=== PATIENT | female | born 1950 | race Caucasian/White ===

== ENCOUNTER → 2016-11-04 | Outpatient (CLI) | payer BC ==
--- NOTE | 2016-11-04 22:11 | RADRPT ---
PROCEDURE: CT Chest Without Contrast CLINICAL INDICATION: Cough TECHNIQUE: Volumetric acquisition of the thorax was performed without the intravenous administrati on of contrast. Radiation Dose: CTDI = 14.12 mGy; DLP = 536.24 mGy-cm. COMPARISON: 02/19/2016. FINDINGS: Lung villafana: Slight reticular changes again seen at the pulmonary apices. Discoid atelectatic de la rosa es again seen within the right middle lobe medially, but has resolved from the medial right lung bas e. A noncalcified pleural based nodule is again seen within the right lower lobe adjacent to the po sterior pleura measuring 7 mm in diameter best seen on image number 67 of series #4. A slightly mor e superiorly and medially up pleural-based 4 mm noncalcified nodule is seen within the left lower lo be, also unchanged. The vague focal infiltrate has developed within the anterior basal segment of t he right lower lobe posterior to the dome of the diaphragm and also more posteriorly and laterally w ithin the right lower lobe. The pleural spaces: No effusion or pneumothorax is identified. Lymph nodes: There is an 9 mm in short diameter neural subcarinal node, minimally increased in size. And 8 mm in short diameter precarinal node is evident which is also as minimally increased in size . A 6 mm in short diameter pretracheal node is again evident and a 6 mm right paratracheal node is again noted. Cardiovascular structures: And the heart is not enlarged. The aorta is normal in caliber with ather osclerotic vascular calcification noted. Thyroid: Unremarkable. Superior abdominal structures: No significant abnormality is evident. Osseous structures: Mild diffuse anterior spondylosis is seen to the spine. IMPRESSION: 1. Interval development of small focal infiltrates within the right lower lobe and within the anter ior basal segment posterior to the dome of the diaphragm and 1 more posteriorly and laterally. 2. Persistent subsegmental atelectasis involving the medial right middle lobe containing air bronch ograms. 3. 2 pleural based noncalcified nodules are again seen within the posterior right lower lobe 1 loly uring 7 mm in diameter and the other 4 mm in diameter. 4. Minimal reticular changes are again seen at the pulmonary apices compatible with scarring. 5. No pleural fluid accumulation pneumothorax evident. 6. Slight increase in size to a 9 mm in short diameter subcarinal node and 8 mm in short diameter p recarinal node with no interval change to the 6 mm in short diameter pretracheal node and a 6 mm in short diameter right paratracheal node. 7. The cardiovascular structures appear unremarkable except for mild atherosclerotic change involvi ng the aorta. 8. Mild diffuse degenerative anterior spondylosis is seen to the visualized spine. Physician Zachary Date Time Electronically viewed and signed by Edy Bennett Physician on 11/04/2016 22:11 /
== END | disposition home or self-care (01) ==
LOC: C/S 08:41
PROVIDERS: ATTEND Internal Medicine
DX: R05 Cough (principal); J98.11 Atelectasis
CPT/HCPCS: 71250

== ENCOUNTER → 2016-11-12 | Outpatient (CLI) | payer BC ==
[2016-11-12 14:24] LABS: BASOPHIL # 0.1 10^3/ul (0.0-0.1); BASOPHILS % 0.5 % (0.0-2.0); EOSINOPHILS # 0.4 10^3/ul (0.0-0.5); EOSINOPHILS % 3.1 % (0.0-7.0); HEMOGLOBIN 11.7 g/dl (12.0-16.0); LYMPHOCYTES % 23.5 % (15.0-51.0); MEAN CORPUSCULAR HEMOGLOBIN 29.7 pg (29.0-33.0); MEAN CORPUSCULAR HGB CONC 34.4 g/dl (32.0-37.0); MEAN CORPUSCULAR VOLUME 86.3 fl (82.0-101.0); MEAN PLATELET VOLUME 7.9 fl (7.4-10.4); MONOCYTE # 0.7 10^3/ul (0.3-0.9); MONOCYTES % 5.7 % (0.0-11.0); NEUTROPHIL # 8.5 10^3/ul (1.6-7.5); NEUTROPHILS % 67.2 % (39.0-77.0); PLATELET COUNT 531 10^3/UL (140-440); RED BLOOD COUNT 3.94 10^6/ul (4.20-5.40); RED CELL DISTRIBUTION WIDTH 13.1 % (11.5-14.5); UNCORRECTED WBC 12.7 10^3/ul (4.8-10.8); WHITE BLOOD COUNT 12.7 10^3/ul (4.8-10.8)
[2016-11-12 14:29] LABS: CONDITION 1
[2016-11-15 19:22] LABS: TB-NIL <0.00 IU/mL
== END | disposition home or self-care (01) ==
LOC: LAB 13:35
PROVIDERS: ATTEND Internal Medicine Pulmonary Disease
DX: J40 Bronchitis, not specified as acute or chronic (principal)
CPT/HCPCS: 82785; 85025; 86480; 86606; 86635

== ENCOUNTER → 2018-05-19 | Outpatient (CLI) | END | disposition home or self-care (01) ==

== ENCOUNTER → 2018-07-19 | Outpatient (CLI) | END | disposition home or self-care (01) ==

== ENCOUNTER → 2018-07-25 | Outpatient (CLI) | END | disposition home or self-care (01) ==

== ENCOUNTER → 2018-07-26 | Outpatient (CLI) | END | disposition home or self-care (01) ==

== ENCOUNTER 2019-05-28 05:44 | Emergency (ER) | payer BC ==
[~2019-05-28] VITALS: Ht 175.3 cm; Wt 90.0 kg
[2019-05-28 05:49] VITALS: BP 126/66; PULSE 82; RESP 19; Ht 175.3 cm; Wt 90.0 kg
[2019-05-28] MEDS ORDERED: AMOX1TAB10 PO (05:51)
--- NOTE | 2019-05-28 05:56 | ERD ---
ER Documentation Chief Complaint Chief Complaint bib self, cc: right hand scratch from cat / bite HPI 68-year-old female no past medical history presents to the emergency with cat bite and scratch to the right hand worse to the middle finger. Patient notes only mild discomfort, worse with ranging the joint. Tetanus is reported to be up-to-date. This is her cat but it is a rescue. ROS All systems reviewed and are negative except as per history of present illness. Medications Home Meds Active Scripts Amoxicillin/Potassium Clav (Amox-Clav 875-125 mg Tablet) 875-125 mg Tab, 1 TAB PO BID for 7 Days, #14 TAB Prov:CASSIUS REYNAGA MD 05/28/19 Allergies Allergies: Coded Allergies: No Known Allergy (Unverified , 05/28/19) PMhx/Soc Medical and Surgical Hx: pt denies Medical Hx, pt denies Surgical Hx Hx Alcohol Use: No Hx Substance Use: No Hx Tobacco Use: No Smoking Status: Never smoker FmHx Family History: No diabetes Physical Exam Vitals Vital Signs Date Temp Pulse Resp B/P (MAP) Pulse Ox O2 O2 Flow FiO2 Time Delivery Rate 05/28/19 98.7 82 19 126/66 100 05:49 (86) Physical Exam General: Well developed, well nourished, no acute distress Head: Normocephalic, atraumatic. Eyes: EOM intact ENT: Moist mucous membranes Neck: Full ROM Respiratory: No respiratory distress Cardiovascular: Well perfused distally Abdominal: Nondistended : Deferred MSK: The patient has scratch and abrasions noted to the palmar surface and dorsal surface of the right hand with soft tissue swelling and mild contusion noted to the middle finger. Full active and passive range of motion, no bony abnormalities, good capillary refill. Neurologic: Alert and oriented, moving all extremities, normal speech, steady gait Skin: No rash Psych: Normal mood Results 24 hrs Current Medications Medications Dose Sig/Twan Start Time Status Last (Trade) Ordered Route PRN Stop Time Admin Dose Reason Admin 875 mg ONCE ONCE 05/28/19 Amoxicillin/ PO 06:00 Clavulanate 05/28/19 06:01 Potassium (Augmentin) Procedures/MDM Patient suffered a cat bite to the right hand. The patient is reported to be up-to-date on her tetanus. Patient will benefit from empiric antibiotics. The patient thoroughly cleaned and irrigated the wounds prior to arrival. No signs or symptoms concerning for infection. No evidence of bony fracture abnormality's or ligamentous or tendinous damage. No indication for x-ray imaging at this time. First dose of Augmentin provided. Patient safe for discharge. Return precautions for signs of infection also discussed with the patient. Departure Diagnosis: Primary Impression: Cat bite Encounter type: initial encounter Qualified Codes: W55.01XA - Bitten by cat, initial encounter Condition: Stable Patient Instructions: Cat Bite Additional Instructions: Call your primary care doctor TOMORROW for an appointment during the next 1 WEEK.Tell the national secretary that you were referred from this facility.See the doctor sooner or return here if your condition worsens before your appointment time. CASSIUS REYNAGA MD May 28, 2019 05:56
[2019-05-28] MEDS ORDERED: AMOXICILLIN/CLAV 875 MG TAB PO ONE (06:00)
== END 2019-05-28 06:11 | disposition home or self-care (01) ==
LOC: E/R 05:44
DX: S61.451A Open bite of right hand, initial encounter (principal); S60.031A Contusion of right middle finger without damage to nail, initial encounter; W55.01XA Bitten by cat, initial encounter; Y92.9 Unspecified place or not applicable
CPT/HCPCS: 99283

== ENCOUNTER → 2019-08-28 | Outpatient (CLI) | payer BC ==
[~2019-08-28] MED LIST: AMOX1TAB10 PO; BENA1TAB12 PO; LEVO150T87 PO; METF100010 PO; SPIR100T4 PO; SUCR1TAB56 PO
== END | disposition home or self-care (01) ==
LOC: LAB 06:57
PROVIDERS: ATTEND Internal Medicine
DX: I10 Essential (primary) hypertension (principal)
CPT/HCPCS: 80053; 81003; 85025; 85610; 85730; 86304; 87086